=== PATIENT | male | born 2000 | race Hispanic/Latino ===

== ENCOUNTER 2023-08-11 12:18 | Emergency (ER) | payer BC ==
[2023-08-11] MEDS ORDERED: Proparacaine 0.5% Opth 15 ML BOT ONE (12:53)
[2023-08-11] MEDS ORDERED: Fluorescein Opthalmic Strip ONE (12:54)
== END 2023-08-11 13:45 | disposition home or self-care (01) ==
LOC: CSHERS 12:18
DX: S05.02XA Injury of conjunctiva and corneal abrasion without foreign body, left eye, initial encounter (principal); F17.220 Nicotine dependence, chewing tobacco, uncomplicated; X58.XXXA Exposure to other specified factors, initial encounter
CPT/HCPCS: 99283